=== PATIENT | male | born 1980 | race Native Hawaiian/Other Pacific Islander ===

== ENCOUNTER 2016-11-30 12:05 | Outpatient (CLI) | payer OTHER ==
[2016-11-30 12:55] LABS: POTASSIUM 4.4 mmol/L (3.6-5.2); SODIUM 134 mmol/L (136-145)
[2016-11-30 13:21] LABS: PLATELET COUNT 283 K/uL (142-355)
== END 2016-11-30 13:05 | disposition home or self-care (01) ==
LOC: LABW 12:05
PROVIDERS: Internal Medicine
DX: E11.9 Type 2 diabetes mellitus without complications (principal)
CPT/HCPCS: 36415; 80053; 80061; 81000; 82043; 82570; 83036; 83519; 83525; 84443; 84681; 85027

== ENCOUNTER 2017-05-17 14:31 | Outpatient (CLI) | payer OTHER ==
[2017-05-17 15:06] LABS: PLATELET COUNT 232 K/uL (142-355)
== END 2017-05-17 22:13 | disposition home or self-care (01) ==
LOC: LAB 14:31
PROVIDERS: Internal Medicine
DX: E11.9 Type 2 diabetes mellitus without complications (principal)
CPT/HCPCS: 80053; 80061; 81000; 82043; 82570; 83036; 84443; 85027

== ENCOUNTER 2017-06-14 10:54 | Outpatient (CLI) | payer OTHER | END 2017-06-14 18:20 | disposition home or self-care (01) | LOC: LABW 10:54 | DX: R79.89 Other specified abnormal findings of blood chemistry (principal) | CPT/HCPCS: 36415; 80076 ==

== ENCOUNTER 2017-07-26 15:20 | Outpatient (CLI) | payer OTHER | END 2017-07-26 21:43 | disposition home or self-care (01) | LOC: RAD 15:20 | DX: M54.5 Low back pain (principal) ==

== ENCOUNTER 2019-08-09 10:57 | Outpatient (CLI) | payer OTHER ==
[2019-08-09 11:31] LABS: PLATELET COUNT 291 K/uL (142-355)
[2019-08-09 12:22] LABS: POTASSIUM 4.1 mmol/L (3.6-5.2)
== END 2019-08-09 19:01 | disposition home or self-care (01) ==
LOC: LABW 10:57
PROVIDERS: Internal Medicine
DX: E11.9 Type 2 diabetes mellitus without complications (principal)
CPT/HCPCS: 36415; 80053; 80061; 81000; 82043; 82570; 83036; 84443; 85027

== ENCOUNTER 2020-08-26 11:23 | Outpatient (CLI) | payer OTHER ==
[2020-08-26 13:44] LABS: POTASSIUM 4.2 mmol/L (3.6-5.2)
== END 2020-08-26 20:59 | disposition home or self-care (01) ==
LOC: LABW 11:23
PROVIDERS: ATTEND Internal Medicine
DX: E11.9 Type 2 diabetes mellitus without complications (principal)
CPT/HCPCS: 36415; 80053; 80061; 81000; 83036; 84439; 84443

== ENCOUNTER 2021-05-20 10:28 | Outpatient (CLI) | payer OTHER | END 2021-05-20 19:53 | disposition home or self-care (01) | LOC: RAD 10:28 | PROVIDERS: ATTEND Internal Medicine | DX: M54.50 Low back pain, unspecified (principal) ==